=== PATIENT | male | born 1980 | race Caucasian/White ===

== ENCOUNTER 2022-01-29 08:38 | Inpatient (IN) ==
[2022-01-29] MEDS ORDERED: SODIUM CHLORIDE 0.9% 1,000 ML IV STA ×2 (09:23→09:54)
[2022-01-29 09:40] LABS: Basophils # 0.1 10*3/uL (0.0-0.2); Basophils % 0.2 % (0.0-0.8); Hematocrit 28.2 VOL% (42.0-52.0); Hemoglobin 9.3 GM/DL (14.0-18.0); Immature Granulocytes % 1.6 %; Immature Granulocytes Absolute 0.36 #; Lymphocytes # 1.3 10*3/uL (1.4-4.0); Lymphocytes % 5.8 % (21.2-54.2); Mean Corpuscular Volume 96.9 FL (87-102); Mean Platelet Volume 12.3 FL (9.6-12.0); Monocytes # 2.2 10*3/uL (0.11-0.8); Monocytes % 9.3 % (1.7-12.7); Neutrophils % 83.1 % (38.7-73.9); Platelet Count 206 T/CUMM (130-400); Red Blood Count 2.91 MC/CUMM (3.8-5.5); Red Cell Distribution Width 12.5 % (9.3-17.3); White Blood Count 23.2 T/CUMM (4-12)
[2022-01-29 09:48] LABS: Alanine Aminotransferase 194 U/L (16-61); Albumin 3.2 G/DL (3.4-5.0); Alkaline Phosphatase 71 U/L (45-117); Aspartate Amino Transferase 172 U/L (0-37); Blood Urea Nitrogen 21 MG/DL (7-18); Calcium 8.7 MG/DL (8.5-10.1); Carbon Dioxide 20 MMOL/L (21-32); Chloride 109 MMOL/L (98-107); Glucose 131 MG/DL (74-106); Osmolality,Calculated 287.1 MOS/KG (273-304); Potassium 4.4 MMOL/L (3.5-5.1); Sodium 142 MMOL/L (136-145); Total Protein 6.4 G/DL (6.4-8.2)
[2022-01-29 10:17] LABS: Anisocytosis Slight; Band Neutrophils 10 % (0-10); Lymphocytes 9 % (20-55); Macrocytosis Slight; Myelocytes 1 %; Platelet Estimate Normal; Total Cells Counted 100
[2022-01-29] MEDS ORDERED: HYDROmorphone 1 MG/1 ML SYRINGE ONE (11:04)
[2022-01-29] MEDS ORDERED: ONDANSETRON 4 MG/2 ML VIAL IV ONE (11:04)
[2022-01-29] MEDS ORDERED: ONDANSETRON 4 MG/2 ML VIAL ONE (11:04)
[2022-01-29] MEDS ORDERED: HYDROmorphone 1 MG/1 ML SYRINGE IV STA ×2 (11:04→11:57)
[2022-01-29] MEDS ORDERED: propofoL 200 MG/20 ML VIAL IV ONE (11:30)
[2022-01-29] MEDS ORDERED: PIPERACILLIN/TAZOBACTAM 3,375 MG in SODIUM CHLORIDE 0.9% 100 ML IV STA (11:52)
[2022-01-29] MEDS ORDERED: propofoL 200 MG/20 ML VIAL IV STA (11:54)
[2022-01-29 13:13] LABS: Basophils % 0.2 % (0.0-0.8); Hemoglobin 7.9 GM/DL (14.0-18.0); Immature Granulocytes % 0.8 %; Immature Granulocytes Absolute 0.15 #; Lymphocytes # 1.7 10*3/uL (1.4-4.0); Lymphocytes % 8.9 % (21.2-54.2); Mean Corpuscular HGB Conc 32.9 GM/DL (32-36); Mean Corpuscular Volume 97.2 FL (87-102); Mean Platelet Volume 11.9 FL (9.6-12.0); Monocytes # 1.7 10*3/uL (0.11-0.8); Monocytes % 8.6 % (1.7-12.7); Neutrophils % 81.5 % (38.7-73.9); Platelet Count 162 T/CUMM (130-400); Red Blood Count 2.47 MC/CUMM (3.8-5.5); Red Cell Distribution Width 12.5 % (9.3-17.3); White Blood Count 19.3 T/CUMM (4-12)
[2022-01-29 13:23] LABS: INR 1.1; PT Patient Result 12.3 SECS (10.1-12.1)
[2022-01-29] MEDS ORDERED: SODIUM CHLORIDE 0.9% 1,000 ML IV PRN ×2 (13:26→14:57)
[2022-01-29] MEDS ORDERED: ONDANSETRON 4 MG/2 ML VIAL IV PRN (14:36)
[2022-01-29] MEDS ORDERED: GLUCAGON 1 MG VIAL IM PRN (14:36)
[2022-01-29] MEDS ORDERED: DEXTROSE 10% 250 ML BAG IV PRN (14:43)
[2022-01-29] MEDS: LACTATED RINGERS 1,000 ML IV SCH (14:51)
[2022-01-29] MEDS ORDERED: ENOXAPARIN 30 MG/0.3 ML SYRINGE ONE (14:53)
[2022-01-29] MEDS ORDERED: ENOXAPARIN 30 MG/0.3 ML SYRINGE SUBCUT SCH (16:00)
[2022-01-29] MEDS: CEFEPIME 1,000 MG in SODIUM CHLORIDE 0.9% 100 ML IV SCH ×2 (18:01→22:18)
[2022-01-29] MEDS: MORPHINE 2 MG/1 ML SYRINGE IV PRN (20:36)
[2022-01-29 23:31] LABS: Bacteria,Urine Occasional /HPF (Few); Bilirubin,Urine Negative (Negative); Blood, Urine Trace mg/dL (Negative); Glucose,Urine (UA) Negative (Negative); Hyaline Casts,Urine 8 /LPF (0-3); Ketones,Urine Negative (Negative); Mucus,Urine Few /LPF (Occasional); Nitrite,Urine Negative (Negative); Protein,Urine Trace mg/dL (Negative); Sperm,Urine Occasional /HPF (Negative); Squamous Epithelial Cell,Urine Occasional /HPF (0-10); Urine Appearance Clear (Clear); Urine Color Yellow (Yellow); Urine Specific Gravity 1.025 (1.001-1.035); Urine Urobilinogen 0.2 eU/dL (<2.0); Urine pH 5.5 (4.5-8.0)
[2022-01-30] MEDS: LACTATED RINGERS 1,000 ML IV SCH ×4 (00:05→20:17)
[2022-01-30 01:16] LABS: Barbiturates Screen,Urine Negative (Negative); Benzodiazepines Screen,Urine Negative (Negative); Cannabinoid Screen,Urine Positive (Negative); Opiate Screen,Urine Positive (Negative); Phencyclidine Screen,Urine Negative (Negative)
[2022-01-30] MEDS: MORPHINE 2 MG/1 ML SYRINGE IV PRN ×2 (01:43→07:32)
[2022-01-30] MEDS: CEFEPIME 1,000 MG in SODIUM CHLORIDE 0.9% 100 ML IV SCH ×4 (06:03→23:33)
[2022-01-30 06:39] LABS: Basophils # 0.1 10*3/uL (0.0-0.2); Basophils % 0.5 % (0.0-0.8); Eosinophils # 0.1 10*3/uL (0.0-0.87); Eosinophils % 0.9 % (0.00-10.9); Hematocrit 27.5 VOL% (42.0-52.0); Hemoglobin 9.5 GM/DL (14.0-18.0); Immature Granulocytes % 0.5 %; Immature Granulocytes Absolute 0.07 #; Lymphocytes # 3.4 10*3/uL (1.4-4.0); Lymphocytes % 25.2 % (21.2-54.2); Mean Corpuscular HGB Conc 34.5 GM/DL (32-36); Mean Platelet Volume 12.7 FL (9.6-12.0); Monocytes # 1.3 10*3/uL (0.11-0.8); Monocytes % 9.3 % (1.7-12.7); Neutrophils % 63.6 % (38.7-73.9); Platelet Count 145 T/CUMM (130-400); Red Blood Count 2.99 MC/CUMM (3.8-5.5); Red Cell Distribution Width 13.4 % (9.3-17.3); White Blood Count 13.7 T/CUMM (4-12)
[2022-01-30 06:47] LABS: Osmolality,Calculated 274.8 MOS/KG (273-304); Potassium 3.8 MMOL/L (3.5-5.1)
[2022-01-30 07:24] LABS: Lymphocytes 26 % (20-55); Platelet Estimate Normal; Total Cells Counted 100
[2022-01-30] MEDS: PANTOPRAZOLE 40 MG TABLET PO SCH (08:56)
[2022-01-30] MEDS ORDERED: NICOTINE 21 MG/24 HR PATCH TRANSDERM PRN (11:09)
[2022-01-30] MEDS: HYDROmorphone 1 MG/1 ML SYRINGE IV PRN ×3 (11:32→21:02)
[2022-01-30] MEDS: ENOXAPARIN 40 MG/0.4 ML SYRINGE SUBCUT SCH (15:27)
[2022-01-31] MEDS: LACTATED RINGERS 1,000 ML IV SCH ×3 (00:16→15:45)
[2022-01-31] MEDS: HYDROmorphone 1 MG/1 ML SYRINGE IV PRN ×2 (02:20→08:41)
[2022-01-31] MEDS: CEFEPIME 1,000 MG in SODIUM CHLORIDE 0.9% 100 ML IV SCH ×3 (05:39→17:57)
[2022-01-31] MEDS: PANTOPRAZOLE 40 MG TABLET PO SCH (09:39)
[2022-01-31] MEDS: GABAPENTIN 100 MG CAPSULE PO SCH ×2 (13:27→20:40)
[2022-01-31] MEDS: KETOROLAC 15 MG/1 ML VIAL IV SCH ×2 (13:27→20:40)
[2022-01-31] MEDS: ENOXAPARIN 40 MG/0.4 ML SYRINGE SUBCUT SCH (14:37)
[2022-01-31 15:37] LABS: % Iron Saturation 14.8 % (18-50)
[2022-01-31 15:40] LABS: Folate 17.06 NG/ML (5.38-24.0)
[2022-02-01] MEDS: CEFEPIME 1,000 MG in SODIUM CHLORIDE 0.9% 100 ML IV SCH ×4 (00:39→17:51)
[2022-02-01] MEDS: KETOROLAC 15 MG/1 ML VIAL IV SCH ×4 (00:40→20:34)
[2022-02-01] MEDS: HYDROmorphone 1 MG/1 ML SYRINGE IV PRN ×4 (03:58→21:54)
[2022-02-01 06:22] LABS: Basophils # 0.1 10*3/uL (0.0-0.2); Basophils % 0.5 % (0.0-0.8); Eosinophils # 0.2 10*3/uL (0.0-0.87); Eosinophils % 2.3 % (0.00-10.9); Hematocrit 27.1 VOL% (42.0-52.0); Hemoglobin 9.1 GM/DL (14.0-18.0); Immature Granulocytes % 0.7 %; Immature Granulocytes Absolute 0.07 #; Lymphocytes # 2.2 10*3/uL (1.4-4.0); Lymphocytes % 20.8 % (21.2-54.2); Mean Corpuscular HGB Conc 33.6 GM/DL (32-36); Mean Corpuscular Volume 93.8 FL (87-102); Mean Platelet Volume 11.7 FL (9.6-12.0); Monocytes # 1.3 10*3/uL (0.11-0.8); Monocytes % 12.7 % (1.7-12.7); Platelet Count 177 T/CUMM (130-400); Red Blood Count 2.89 MC/CUMM (3.8-5.5); Red Cell Distribution Width 13.3 % (9.3-17.3); White Blood Count 10.5 T/CUMM (4-12)
[2022-02-01 06:59] LABS: Calcium 8.6 MG/DL (8.5-10.1); Osmolality,Calculated 277.4 MOS/KG (273-304); Potassium 3.8 MMOL/L (3.5-5.1)
[2022-02-01] MEDS: PANTOPRAZOLE 40 MG TABLET PO SCH (08:15)
[2022-02-01] MEDS: GABAPENTIN 100 MG CAPSULE PO SCH ×2 (08:15→20:33)
[2022-02-01 14:37] LABS: Mycoplasma pneumoniae Ab, IgG Positive (Negative); Mycoplasma pneumoniae Ab, IgM Reactive (Negative)
[2022-02-01] MEDS: ENOXAPARIN 40 MG/0.4 ML SYRINGE SUBCUT SCH (16:47)
[2022-02-02] MEDS: CEFEPIME 1,000 MG in SODIUM CHLORIDE 0.9% 100 ML IV SCH ×5 (00:48→23:23)
[2022-02-02] MEDS: KETOROLAC 15 MG/1 ML VIAL IV SCH ×4 (00:49→21:44)
[2022-02-02] MEDS: HYDROmorphone 1 MG/1 ML SYRINGE IV PRN ×5 (04:06→20:45)
[2022-02-02 05:44] LABS: Basophils # 0.1 10*3/uL (0.0-0.2); Basophils % 0.5 % (0.0-0.8); Eosinophils # 0.4 10*3/uL (0.0-0.87); Eosinophils % 3.8 % (0.00-10.9); Hemoglobin 8.8 GM/DL (14.0-18.0); Immature Granulocytes % 0.7 %; Immature Granulocytes Absolute 0.08 #; Lymphocytes # 1.5 10*3/uL (1.4-4.0); Lymphocytes % 12.9 % (21.2-54.2); Mean Corpuscular HGB Conc 32.6 GM/DL (32-36); Mean Corpuscular Volume 96.8 FL (87-102); Mean Platelet Volume 11.6 FL (9.6-12.0); Monocytes # 1.4 10*3/uL (0.11-0.8); Monocytes % 12.8 % (1.7-12.7); Neutrophils % 69.3 % (38.7-73.9); Platelet Count 184 T/CUMM (130-400); Red Blood Count 2.79 MC/CUMM (3.8-5.5); Red Cell Distribution Width 13.5 % (9.3-17.3); White Blood Count 11.2 T/CUMM (4-12)
[2022-02-02 06:00] LABS: Calcium 8.3 MG/DL (8.5-10.1); Osmolality,Calculated 284.1 MOS/KG (273-304); Potassium 4.1 MMOL/L (3.5-5.1)
[2022-02-02] MEDS: PANTOPRAZOLE 40 MG TABLET PO SCH (09:46)
[2022-02-02] MEDS: GABAPENTIN 100 MG CAPSULE PO SCH ×2 (09:58→20:45)
[2022-02-02] MEDS ORDERED: fentaNYL 100 MCG/2 ML VIAL ONE ×2 (10:27)
[2022-02-02] MEDS ORDERED: LIDOCAINE 2% 5 ML VIAL ONE (10:27)
[2022-02-02] MEDS ORDERED: propofoL 200 MG/20 ML VIAL IV ONE (10:27)
[2022-02-02] MEDS ORDERED: ROCURONIUM 50 MG/5 ML VIAL IV ONE (10:27)
[2022-02-02] MEDS ORDERED: MIDAZOLAM 2 MG/2 ML VIAL ONE (10:28)
[2022-02-02] MEDS ORDERED: TALC INTRAPLEURAL POWDER 3 GM VIAL INTRAPLEUR ONE (11:18)
[2022-02-02] MEDS ORDERED: ALBUTEROL/IPRATROPIUM 3 ML NEB RESP TX ONE (11:40)
[2022-02-02] MEDS: DOXYCYCLINE HYCLATE INJ 100 MG in SODIUM CHLORIDE 0.9% 100 ML IV SCH (13:06)
[2022-02-02] MEDS: ENOXAPARIN 40 MG/0.4 ML SYRINGE SUBCUT SCH (15:00)
[2022-02-03] MEDS: DOXYCYCLINE HYCLATE INJ 100 MG in SODIUM CHLORIDE 0.9% 100 ML IV SCH ×2 (01:05→12:31)
[2022-02-03] MEDS: KETOROLAC 15 MG/1 ML VIAL IV SCH (02:34)
[2022-02-03 04:53] LABS: Basophils # 0.1 10*3/uL (0.0-0.2); Basophils % 0.6 % (0.0-0.8); Eosinophils # 0.5 10*3/uL (0.0-0.87); Eosinophils % 5.1 % (0.00-10.9); Hematocrit 28.3 VOL% (42.0-52.0); Hemoglobin 9.3 GM/DL (14.0-18.0); Immature Granulocytes % 1.3 %; Immature Granulocytes Absolute 0.13 #; Lymphocytes % 20.4 % (21.2-54.2); Mean Corpuscular HGB Conc 32.9 GM/DL (32-36); Mean Corpuscular Volume 97.6 FL (87-102); Mean Platelet Volume 11.4 FL (9.6-12.0); Monocytes # 1.6 10*3/uL (0.11-0.8); Monocytes % 16.5 % (1.7-12.7); Neutrophils % 56.1 % (38.7-73.9); Platelet Count 214 T/CUMM (130-400); Red Cell Distribution Width 13.9 % (9.3-17.3); White Blood Count 9.9 T/CUMM (4-12)
[2022-02-03 05:05] LABS: Calcium 8.8 MG/DL (8.5-10.1); Osmolality,Calculated 281.3 MOS/KG (273-304)
[2022-02-03 05:15] LABS: Eosinophils 8 % (0-10); Lymphocytes 20 % (20-55); Platelet Estimate Adequate; Total Cells Counted 100
[2022-02-03] MEDS: HYDROmorphone 1 MG/1 ML SYRINGE IV PRN ×4 (06:06→19:05)
[2022-02-03] MEDS ORDERED: fentaNYL 100 MCG/2 ML VIAL ONE (06:15)
[2022-02-03] MEDS ORDERED: LIDOCAINE 2% 5 ML VIAL ONE (06:17)
[2022-02-03] MEDS ORDERED: propofoL 200 MG/20 ML VIAL IV ONE (06:17)
[2022-02-03] MEDS ORDERED: MIDAZOLAM 2 MG/2 ML VIAL ONE (06:18)
[2022-02-03] MEDS ORDERED: DEXMEDETOMIDINE 200 MCG/2 ML VIAL ONE (06:19)
[2022-02-03] MEDS ORDERED: HEPARIN/NACL 0.9% 2 UNITS/ML 1,000 UNIT/500 ML BAG IV ONE (06:22)
[2022-02-03] MEDS ORDERED: LACTATED RINGERS 1,000 ML IV SCH (09:30)
[2022-02-03] MEDS ORDERED: PHENYLEPHRINE 1 MG/10 ML SYRINGE IV ONE (09:53)
[2022-02-03] MEDS ORDERED: SEVOFLURANE 1 UNIT/15 MINUTE INH ONE (10:10)
[2022-02-03] MEDS ORDERED: ONDANSETRON 4 MG/2 ML VIAL ONE (10:10)
[2022-02-03] MEDS ORDERED: TISSUE ADHESIVE 1 EACH APPLICATOR TOP ONE (10:22)
[2022-02-03] MEDS ORDERED: SUGAMMADEX 200 MG/2 ML VIAL IV ONE (10:25)
[2022-02-03] MEDS ORDERED: KETOROLAC 30 MG/1 ML VIAL IV ONE (11:00)
[2022-02-03] MEDS: FERROUS SULFATE 325 MG TABLET PO SCH (12:09)
[2022-02-03] MEDS: GABAPENTIN 100 MG CAPSULE PO SCH ×2 (12:10→21:11)
[2022-02-03] MEDS: PANTOPRAZOLE 40 MG TABLET PO SCH (12:10)
[2022-02-03] MEDS: CHOLECALCIFEROL 1,000 UNIT TABLET PO SCH (12:10)
[2022-02-03 12:26] LABS: QuantiFERON-Tb Gold Pl Negative (Negative); TB2 Ag Minus Result 0 IU/mL
[2022-02-03] MEDS: KETOROLAC 10 MG TABLET PO SCH (17:56)
[2022-02-03] MEDS: CEFEPIME 1,000 MG in SODIUM CHLORIDE 0.9% 100 ML IV SCH (19:03)
[2022-02-04] MEDS: HYDROmorphone 1 MG/1 ML SYRINGE IV PRN ×6 (00:12→19:50)
[2022-02-04] MEDS: KETOROLAC 10 MG TABLET PO SCH ×5 (02:50→23:13)
[2022-02-04] MEDS: CEFEPIME 1,000 MG in SODIUM CHLORIDE 0.9% 100 ML IV SCH ×6 (02:55→23:19)
[2022-02-04] MEDS: DOXYCYCLINE HYCLATE INJ 100 MG in SODIUM CHLORIDE 0.9% 100 ML IV SCH ×2 (03:41→13:30)
[2022-02-04 06:00] LABS: Basophils # 0.1 10*3/uL (0.0-0.2); Basophils % 0.4 % (0.0-0.8); Eosinophils # 0.4 10*3/uL (0.0-0.87); Hematocrit 28.9 VOL% (42.0-52.0); Hemoglobin 9.3 GM/DL (14.0-18.0); Immature Granulocytes Absolute 0.13 #; Lymphocytes # 2.2 10*3/uL (1.4-4.0); Lymphocytes % 16.6 % (21.2-54.2); Mean Corpuscular HGB Conc 32.2 GM/DL (32-36); Mean Corpuscular Volume 99.7 FL (87-102); Mean Platelet Volume 11.4 FL (9.6-12.0); Monocytes # 1.9 10*3/uL (0.11-0.8); Monocytes % 14.5 % (1.7-12.7); Neutrophils % 64.5 % (38.7-73.9); Platelet Count 244 T/CUMM (130-400); Red Cell Distribution Width 13.7 % (9.3-17.3); White Blood Count 13.4 T/CUMM (4-12)
[2022-02-04 06:28] LABS: Calcium 8.3 MG/DL (8.5-10.1); Osmolality,Calculated 277.5 MOS/KG (273-304); Potassium 3.8 MMOL/L (3.5-5.1)
[2022-02-04] MEDS: PANTOPRAZOLE 40 MG TABLET PO SCH (09:03)
[2022-02-04] MEDS: FERROUS SULFATE 325 MG TABLET PO SCH (09:03)
[2022-02-04] MEDS: GABAPENTIN 100 MG CAPSULE PO SCH ×2 (09:04→23:17)
[2022-02-04] MEDS: CHOLECALCIFEROL 1,000 UNIT TABLET PO SCH (09:04)
[2022-02-05] MEDS: CEFEPIME 1,000 MG in SODIUM CHLORIDE 0.9% 100 ML IV SCH ×3 (00:38→12:57)
[2022-02-05] MEDS: DOXYCYCLINE HYCLATE INJ 100 MG in SODIUM CHLORIDE 0.9% 100 ML IV SCH ×2 (00:42→12:57)
[2022-02-05 05:30] LABS: Basophils # 0.1 10*3/uL (0.0-0.2); Basophils % 0.4 % (0.0-0.8); Eosinophils # 0.6 10*3/uL (0.0-0.87); Hematocrit 28.1 VOL% (42.0-52.0); Immature Granulocytes % 1.4 %; Immature Granulocytes Absolute 0.16 #; Lymphocytes # 2.1 10*3/uL (1.4-4.0); Lymphocytes % 18.5 % (21.2-54.2); Mean Corpuscular Volume 98.6 FL (87-102); Mean Platelet Volume 11.2 FL (9.6-12.0); Monocytes # 1.9 10*3/uL (0.11-0.8); Monocytes % 16.7 % (1.7-12.7); Platelet Count 238 T/CUMM (130-400); Red Blood Count 2.85 MC/CUMM (3.8-5.5); Red Cell Distribution Width 13.7 % (9.3-17.3); White Blood Count 11.5 T/CUMM (4-12)
[2022-02-05 05:52] LABS: Calcium 8.4 MG/DL (8.5-10.1); Potassium 4.3 MMOL/L (3.5-5.1)
[2022-02-05 06:02] LABS: Band Neutrophils 1 % (0-10); Eosinophils 4 % (0-10); Hypochromia Slight; Lymphocytes 16 % (20-55); Macrocytosis Slight; Platelet Estimate Normal; Total Cells Counted 100
[2022-02-05] MEDS: KETOROLAC 10 MG TABLET PO SCH ×2 (07:06→12:37)
[2022-02-05] MEDS: FERROUS SULFATE 325 MG TABLET PO SCH (09:27)
[2022-02-05] MEDS: PANTOPRAZOLE 40 MG TABLET PO SCH (09:28)
[2022-02-05] MEDS: GABAPENTIN 100 MG CAPSULE PO SCH (09:28)
[2022-02-05] MEDS: CHOLECALCIFEROL 1,000 UNIT TABLET PO SCH (09:28)
[2022-02-05 13:02] VITALS: BP 135/81
== END 2022-02-05 13:38 | disposition home or self-care (01) | DRG 853 ==
LOC: N.ED 08:38 → N.EDINP 14:36 → SUATTDRO 14:36 → N.3E 15:38
PROVIDERS: ADMIT Emergency Medicine; ATTEND Internal Medicine